=== PATIENT | female | born 1985 | race Caucasian/White ===

== ENCOUNTER 2016-05-24 17:12 | Emergency (ER) | payer OTHER ==
[2016-05-24 17:23] VITALS: BP 159/100
--- NOTE | 2016-05-24 17:29 | PHYS DOC ---
Past Medical History Past Medical History: No Pertinent History Past Surgical History: No Surgical History Adult General Chief Complaint Chief Complaint: TOE PROBLEM HPI HPI Patient is a 31 year old male presents emergency department stating that she has having right second toe pain. She states 2 days ago she was lifting a couch to document anything that when it fell on her toe. She states she has had increased pain and swelling. She's been taken Tylenol and ibuprofen for the pain and discomfort. She states today was first a she was actually able to elevate the foot. Patient also states that she is having right ear pain and discomfort denies any fever, chills or any nausea vomiting. Review of Systems Review of Systems Constitutional: Denies fever or chills [] Eyes: Denies change in visual acuity, redness, or eye pain [] HENT: Denies nasal congestion or sore throat. C/o right ear pain and discomfort Respiratory: Denies cough or shortness of breath [] Cardiovascular: No additional information not addressed in HPI [] GI: Denies abdominal pain, nausea, vomiting, bloody stools or diarrhea [] : Denies dysuria or hematuria [] Musculoskeletal: Denies back pain. C/o right second toe pain Integument: Denies rash or skin lesions [] Neurologic: Denies headache, focal weakness or sensory changes [] Current Medications Current Medications Current Medications Medications (Trade) Dose Ordered Sig/Shruthi Start Time Stop Time Status Last Admin Dose Admin Ibuprofen (Motrin) 800 mg 1X ONCE 05/24/16 17:30 05/24/16 17:31 DC 05/24/16 17:32 800 MG Allergies Allergies Allergies Coded Allergies Type Severity Reaction Last Updated Verified No Known Drug Allergies 05/24/16 No Physical Exam Physical Exam Constitutional: Well developed, well nourished, no acute distress, non-toxic appearance. [] HENT: Normocephalic, atraumatic, bilateral external ears normal, oropharynx moist, no oral exudates, nose normal. Left tympanic membrane appears to be normal, right tympanic membrane appears to be red. Eyes: PERRLA, EOMI, conjunctiva normal, no discharge. [] Neck: Normal range of motion, no tenderness, supple, no stridor. [] Cardiovascular:Heart rate regular rhythm, no murmur [] Lungs & Thorax: Bilateral breath sounds clear to auscultation [] Skin: Warm, dry, no erythema, no rash. [] Back: No tenderness Extremities: Right second toe tenderness, no cyanosis, no clubbing, ROM intact, no edema. Right second toe appears to be swollen as well as black and blue. Patient with sensation noted although decreased. Neurologic: Alert and oriented X 3, normal motor function, normal sensory function, no focal deficits noted. [] Psychologic: Affect normal, judgement normal, mood normal. [] Current Patient Data Vital Signs Vital Signs Date Time Temp Pulse Resp B/P Pulse Ox O2 Delivery O2 Flow Rate FiO2 05/24/16 17:23 98.1 74 18 98 Room Air 98.1 EKG EKG [] Radiology/Procedures Radiology/Procedures [] Course & Med Decision Making Course & Med Decision Making Pertinent Labs and Imaging studies reviewed. (See chart for details) X-rays reveal a tuft fracture to the second right toe. Patient was recommended to wear hard soled shoe in which she states that she would prefer a postop shoe at this time. Patient was encouraged keep the toe clean and dry and apply antibiotic ointment to the base of the nail. Patient will be placed on amoxicillin for a right otitis media. Recommended Tylenol and ibuprofen for fever chills generalized body aches and discomfort as well as pain. Patient was also provided with hydrocodone for severe pain and discomfort for the toe. She was instructed this medication will cause drowsiness do not take any be alert and oriented. Patient agrees with discharge instructions treatment regimens and follow-up recommendations. [] Dragon Disclaimer Dragon Disclaimer This electronic medical record was generated, in whole or in part, using a voice recognition dictation system. Departure Departure Impression: Primary Impression: Fracture of toe, closed Additional Impression: Right otitis media Disposition: 01 HOME, SELF-CARE Condition: STABLE Referrals: MOHINI SHELL MD Patient Instructions: Otitis Media, Adult, [id number], Toe Fracture, Easy-to- Read Additional Instructions: Activity as tolerated. Tylenol and ibuprofen for pain and discomfort. Hydrocodone for severe pain and discomfort this medication will cause drowsiness do not take any be alert and oriented. Ice packs on 20 minutes off 20 minutes several times a day. Elevation as much as possible. Primary care physician in the next 5-7 days. He also follow-up with orthopedic in the next 5-7 days in regards to your toe fracture. Return to the emergency department sign symptoms of become worse. Scripts Hydrocodone/Apap 5-325 ([place] 5-325 Tablet)1 Each Tablet1 Tab PO PRN Q6HRS PRN PAIN #10 TAB Prov:RADHA DELEON NP 05/24/16 Amoxicillin 500 Mg Capsule1 Cap PO BID #20 CAP Prov:RADHA DELEON CERTIFIED PESTICIDE APPLICATOR 05/24/16 Problem Qualifiers RADHA DELEON NP May 24, 2016 17:29
[2016-05-24] MEDS ORDERED: IBUPROFEN 800 MG TABLET. PO ONE (17:30)
[2016-05-24] MEDS ORDERED: AMOX500C PO (18:02)
[2016-05-24] MEDS ORDERED: HYDR-971 PO (18:02)
--- NOTE | 2016-05-25 07:53 | RAD ---
Right second toe, 3 views, 05/24/2016: History: Trauma, injury There is a fracture of the distal phalanx. There is slight lateral displacement of a small terminal tuft fragment. There is an additional small cortical fragment present along the lateral margin of the proximal end of the distal phalanx. The proximal and middle phalanges are unremarkable. IMPRESSION: Acute fracture of the distal phalanx of the second toe.
== END 2016-05-24 18:11 | disposition home or self-care (01) ==
LOC: ER 17:12
DX: S92.531A Displaced fracture of distal phalanx of right lesser toe(s), initial encounter for closed fracture (principal); H66.91 Otitis media, unspecified, right ear; W20.8XXA Other cause of strike by thrown, projected or falling object, initial encounter; Y93.89 Activity, other specified; Y92.89 Other specified places as the place of occurrence of the external cause; Y99.8 Other external cause status
CPT/HCPCS: 73660; 99284

== ENCOUNTER 2016-05-28 12:16 | Emergency (ER) | payer OTHER ==
[~2016-05-28] VITALS: Ht 170.2 cm; Wt 95.3 kg
[~2016-05-28 12:16] MED LIST: AMOX500C PO; HYDR-971 PO
[2016-05-28 12:30] VITALS: BP 155/111
[2016-05-28] MEDS ORDERED: CIPR7.5D AD (13:13)
--- NOTE | 2016-05-28 13:13 | PHYS DOC ---
Past Medical History Past Medical History: No Pertinent History Past Surgical History: No Surgical History Alcohol Use: None Drug Use: None Adult General Chief Complaint Chief Complaint: EARACHE/EAR PAIN [facility] HPI Patient is a 31 year old female presents emergency department stating that she was seen here 4 days ago for a right ear pain and discomfort. She is placed on amoxicillin at that time. She returns back today stating that she has increased fullness in the ear and continues to have pain and discomfort. She has been using Tylenol and ibuprofen for pain and discomfort. She denies any fever, chills she does state she's she is nasally congested. She also states that she has a sore in the inside of the right ear. She denies any drainage or discharge coming from the ear. Review of Systems Review of Systems Constitutional: Denies fever or chills [] Eyes: Denies change in visual acuity, redness, or eye pain [] HENT: Denies nasal congestion or sore throat. C/o right ear pain and discomfort Respiratory: Denies cough or shortness of breath [] Cardiovascular: No additional information not addressed in HPI [] GI: Denies abdominal pain, nausea, vomiting, bloody stools or diarrhea [] : Denies dysuria or hematuria [] Musculoskeletal: Denies back pain or joint pain [] Integument: Denies rash or skin lesions [] Neurologic: Denies headache, focal weakness or sensory changes [] Allergies Allergies Allergies Coded Allergies Type Severity Reaction Last Updated Verified No Known Drug Allergies 05/24/16 No Physical Exam Physical Exam Constitutional: Well developed, well nourished, no acute distress, non-toxic appearance. [] HENT: Normocephalic, atraumatic, bilateral external ears normal, oropharynx moist, no oral exudates, nose normal. Tympanic membrane appears to be normal. Right tympanic membrane remains red and bulging. Canal appears to be red as well. Patient does have a sore on the inside of the right ear. Patient does have some type sinus tenderness on the right. Eyes: PERRLA, EOMI, conjunctiva normal, no discharge. [] Neck: Normal range of motion, no tenderness, supple, no stridor. [] Cardiovascular:Heart rate regular rhythm, no murmur [] Lungs & Thorax: Bilateral breath sounds clear to auscultation [] Skin: Warm, dry, no erythema, no rash. [] Back: No tenderness Extremities: No tenderness, no cyanosis, no clubbing, ROM intact, no edema. [] Neurologic: Alert and oriented X 3, normal motor function, normal sensory function, no focal deficits noted. [] Psychologic: Affect normal, judgement normal, mood normal. [] Current Patient Data Vital Signs Vital Signs Date Time Temp Pulse Resp B/P Pulse Ox O2 Delivery O2 Flow Rate FiO2 05/28/16 12:30 98.3 83 14 100 Room Air 98.3 EKG EKG [] Radiology/Procedures Radiology/Procedures [] Course & Med Decision Making Course & Med Decision Making Pertinent Labs and Imaging studies reviewed. (See chart for details) Patient will continue with the amoxicillin. She'll be provided with some Cipro eardrops. Also encourage patient to use some Afrin nasal spray 1 spray to bilateral naris twice a day for the next 3 days. Encourage plenty of fluids. Tylenol and ibuprofen for pain and discomfort. Patient agrees with discharge instructions treatment regimens and follow-up recommendations. Signs symptoms to return back to emergency department as been provided. [] Dragon Disclaimer Dragon Disclaimer This electronic medical record was generated, in whole or in part, using a voice recognition dictation system. Departure Departure Impression: Primary Impression: Right otitis media Additional Impression: Right otitis externa Disposition: 01 HOME, SELF-CARE Condition: STABLE Referrals: NO PCP (PCP) Patient Instructions: Otitis Externa, [id number], Otitis Media, Adult, Easy- to-Read Additional Instructions: Activity as tolerated. Continue the amoxicillin which were prescribed 4 days ago. Eardrops as prescribed. Tylenol and ibuprofen for fever chills generalized body aches and discomfort. He may use Afrin [id number] 1 spray to bilateral naris twice a day for the next 3 days. Do not use any longer than to 3 days. Follow-up the primary care physician in the next 3-5 days. Return back to emergency department sign symptoms of become worse. Scripts Ciprofloxacin Hcl/Dexameth (Ciprodex Otic Suspension)7.5 Ml Drops.susp4 Drop AD BID [address] in the right ear for thenext 7 days Prov:RADHA DELEON NP 05/28/16 Problem Qualifiers RADHA DELEON NP May 28, 2016 13:13
== END 2016-05-28 13:19 | disposition home or self-care (01) ==
LOC: ER 12:16
DX: H66.91 Otitis media, unspecified, right ear (principal); H60.91 Unspecified otitis externa, right ear
CPT/HCPCS: 99283

== ENCOUNTER 2016-06-22 10:06 | Emergency (ER) | payer OTHER ==
[~2016-06-22] VITALS: Ht 170.2 cm; Wt 88.0 kg
[~2016-06-22 10:06] MED LIST changes: +CIPR7.5D AD
[2016-06-22 10:22] VITALS: BP 163/121
== END 2016-06-22 11:16 | disposition left against medical advice (07) ==
LOC: ER 10:06
DX: M25.512 Pain in left shoulder (principal); F41.9 Anxiety disorder, unspecified; Z53.21 Procedure and treatment not carried out due to patient leaving prior to being seen by health care provider
CPT/HCPCS: 81025

== ENCOUNTER 2017-04-23 13:39 | Emergency (ER) | payer OTHER ==
[2017-04-23 14:48] LABS: BILIRUBIN,URINE NEGATIVE (NEG); CLARITY,URINE CLEAR; COLOR,URINE YELLOW; GLUCOSE,URINE NEGATIVE (NEG); NITRITE,URINE NEGATIVE (NEG); PH,URINE 7.5; PROTEIN,URINE 30 mg/dL (NEG-TRACE)
[2017-04-23 15:04] LABS: BACTERIA,URINE FEW /HPF (0-FEW); RBC,URINE 20-40 /HPF (0-2); SQUAMOUS EPITHELIAL CELL,UR MOD /LPF
[2017-04-23 15:11] LABS: NEG OBC UR NEG; POS OBC UR POS; U PREG PATIENT POSITIVE (NEG)
[2017-04-23] MEDS: oxyCODONE/APAP 5/325 1 TAB TABLET PO (15:11)
[2017-04-23 16:08] LABS: ADD MAN DIFF? NO
[2017-04-23 16:11] LABS: BASO # 0.1 x10^3/uL (0.0-0.2); BASO % 1 % (0-3); EOS # 0.1 x10^3/uL (0.0-0.7); EOS % 1 % (0-3); HEMATOCRIT 42.7 % (36.0-47.0); HEMOGLOBIN 14.1 g/dL (12.0-15.5); LYMPH # 3.3 x10^3/uL (1.0-4.8); LYMPH % 30 % (24-48); MEAN CORPUSCULAR HEMOGLOBIN 28 pg (25-35); MEAN CORPUSCULAR HGB CONC 33 g/dL (31-37); MEAN CORPUSCULAR VOLUME 84 fL (79-100); MONO # 0.7 x10^3/uL (0.0-1.1); MONO % 6 % (0-9); NEUT # 6.7 x10^3uL (1.8-7.7); NEUT % 61 % (31-73); PLATELET COUNT 230 x10^3/uL (140-400); RED BLOOD COUNT 5.12 x10^6/uL (3.50-5.40); RED CELL DISTRIBUTION WIDTH 15.8 % (11.5-14.5)
[2017-04-24 15:31] LABS: CHLAMYDIA PROBE Negative (Negative); GC PROBE Negative (Negative)
== END 2017-04-23 18:27 | disposition home or self-care (01) ==
LOC: ER 13:39
DX: O20.0 Threatened abortion (principal); Z97.5 Presence of (intrauterine) contraceptive device; J45.909 Unspecified asthma, uncomplicated; Z90.721 Acquired absence of ovaries, unilateral; F12.10 Cannabis abuse, uncomplicated
CPT/HCPCS: 36415; 76801; 76817; 81001; 81025; 84702; 85025; 86901; 87086; 87491; 87591; 99285-25; Q0111

== ENCOUNTER 2018-06-07 13:21 | Emergency (ER) | payer OTHER ==
[~2018-06-07] VITALS: Ht 170.2 cm; Wt 95.3 kg
[~2018-06-07 13:21] MED LIST changes: +HYDR-3164 PO; -HYDR-971 PO; +OXYC1TAB15 PO
[2018-06-07 14:39] VITALS: BP 184/88
[2018-06-07] MEDS ORDERED: CYCL10TA2 PO (15:50)
[2018-06-07] MEDS ORDERED: NAPR-514 PO (15:50)
--- NOTE | 2018-06-07 15:50 | PHYS DOC ---
Past Medical History Past Medical History: Anxiety, Asthma, Depression, Other Additional Past Medical Histor: ADD Past Surgical History: Tonsillectomy, Other Additional Past Surgical Histo: right ovary; left wrist Alcohol Use: Occasionally Drug Use: Marijuana Adult General Chief Complaint Chief Complaint: EARACHE/EAR PAIN [facility] HPI Patient is a 33 year old male who presents to the emergency Department today with complaints of left ear pain for the last 2 days. Patient denies any fever, cough, runny nose, sore throat, shortness of breath, nausea, vomiting, or diarrhea. She denies any discharge or bleeding from her ear. She denies any known injury. Patient states she has had some nasal congestion recently. Currently she states that her ear feels better after hot about a hour ago. Patient also complains of left low back pain that radiates into her left hip since yesterday. Patient states that this symptom happens on occasion she denies any known injury, she also denies any numbness, tingling, or weakness of the lower left extremity. Currently she rates the pain 8 out of 10 on the pain scale. She states that the pain is alleviated with stretching and medications, it is aggravated by weightbearing and movement. Review of Systems Review of Systems Constitutional: Denies fever or chills [] Eyes: Denies change in visual acuity, redness, or eye pain [] HENT: Denies sore throat; see history of present illness Respiratory: Denies cough or shortness of breath [] Cardiovascular: No additional information not addressed in HPI [] GI: Denies abdominal pain, nausea, vomiting, or diarrhea [] Musculoskeletal: See history of present illness Integument: Denies rash or skin lesions [] Neurologic: Denies headache, focal weakness or sensory changes [] Allergies Allergies Allergies Coded Allergies Type Severity Reaction Last Updated Verified No Known Drug Allergies 05/24/16 No Physical Exam Physical Exam Constitutional: Well developed, well nourished, no acute distress, non-toxic appearance. [] HENT: Normocephalic, atraumatic, bilateral external ears normal, bilateral TMs normal, cobblestone appearance of posterior pharynx, oropharynx moist, no oral exudates, nose congested Eyes: conjunctiva normal, no discharge. [] Neck: Normal range of motion, no tenderness, supple, no stridor. [] Cardiovascular:Heart rate regular rhythm, no murmur [] Lungs & Thorax: Bilateral breath sounds clear to auscultation [] Skin: Warm, dry, no erythema, no rash. [] Back: No bony tenderness, left lumbar paraspinal TTP with radiation to her left hip, left straight leg lift positive for increased pain Extremities: No cyanosis, ROM intact, no edema. [] Neurologic: Alert and oriented X 3, normal motor function, normal sensory function, no focal deficits noted. [] Psychologic: Affect normal, judgement normal, mood normal. [] Current Patient Data Vital Signs Vital Signs Date Time Temp Pulse Resp B/P (MAP) Pulse Ox O2 Delivery O2 Flow Rate FiO2 06/07/18 14:39 98.3 89 18 184/88 (120) 100 Room Air 98.3 EKG EKG [] Radiology/Procedures Radiology/Procedures [] Course & Med Decision Making Course & Med Decision Making Pertinent Labs and Imaging studies reviewed. (See chart for details) dx: Eustachian tube dysfunction, left low back pain with sciatica of left leg Encouraged patient to purchase some Flonase nasal spray use 2 sprays each naris once daily in the morning. Also recommend the use of cool mist humidifier in the room with patient. Prescriptions written for Flexeril and naproxen. Patient encouraged to stretch frequently to help relieve sciatica symptoms. Follow-up with primary care doctor symptoms persist, return to ER symptoms worsen.Patient verbalized an understanding of home care, medications, follow-up, and return to ED instructions and was in agreement with the plan of care. [] Dragon Disclaimer Dragon Disclaimer This electronic medical record was generated, in whole or in part, using a voice recognition dictation system. Departure Departure Impression: Primary Impression: Left-sided low back pain with sciatica Additional Impressions: Acute dysfunction of left eustachian tube Otalgia, left ear Disposition: 01 HOME, SELF-CARE Condition: STABLE Referrals: JESSIKA JESUS (PCP) Patient Instructions: Otalgia-Brief, Sciatica, [id number] Additional Instructions: Fill prescription(s) and use as directed for relief of sciatica. Recommend frequent stretching and activity as tolerated. Purchase [id number] Flonase nasal spray use 2 sprays each nare once a day. Also recommend the use of a Cool mist humidifier in room at bedtime. Tylenol or ibuprofen prn pain/fever. Increase clear fluids. Avoid triggers such as smoke, fragrance, dust, and pollen. Follow-up with your primary care doctor as needed. Return to the ER symptoms worsen. Scripts Cyclobenzaprine Hcl (CYCLOBENZAPRINE HCL) 10 Mg Tablet 1 TAB PO TID PRN for PAIN for 10 Days, #30 TAB 0 Refills Prov: ZAC MENDOZA APRN 06/07/18 Naproxen (NAPROXEN) 500 Mg Tablet 500 MG PO BID PRN for PAIN for 10 Days, #20 TAB 0 Refills Prov: ZAC MENDOZA APRN 06/07/18 Problem Qualifiers Primary Impression: Left-sided low back pain with sciatica Chronicity: acute Sciatica laterality: sciatica of left side Qualified Codes: M54.42 - Lumbago with sciatica, left side ZAC MENDOZA APRN Jun 07, 2018 15:50
[2018-06-07] MEDS ORDERED: KETOROLAC 60 MG/2 ML VIAL. IM ONE (16:00)
== END 2018-06-07 16:10 | disposition home or self-care (01) ==
LOC: ER 13:21
DX: H69.82 Other specified disorders of Eustachian tube, left ear (principal); M54.42 Lumbago with sciatica, left side; F41.9 Anxiety disorder, unspecified; J45.909 Unspecified asthma, uncomplicated; F32.9 Major depressive disorder, single episode, unspecified; Z90.89 Acquired absence of other organs
CPT/HCPCS: 96372; 99283; J1885

== ENCOUNTER 2020-01-24 13:46 | Emergency (ER) | payer MEDICAID, OTHER ==
[~2020-01-24] VITALS: Ht 170.2 cm; Wt 91.0 kg
[~2020-01-24 13:46] MED LIST changes: +CYCL10TA2 PO; +NAPR-514 PO
--- NOTE | 2020-01-24 15:00 | RAD ---
Single AP view of the chest. Comparison: None. Indication: Mental status Findings: The heart is at the upper limits of normal. There is no pneumothorax or effusion. No air space or interstitial disease. Impression: 1. No acute cardiopulmonary process. Electronically signed by: Barry Smith MD (01/24/2020 2:57 PM) [id number]
[2020-01-24 15:24] LABS: BASO % 0 % (0-3); EOS % 0 % (0-3); HEMATOCRIT 37.1 % (36.0-47.0); HEMOGLOBIN 12.1 g/dL (12.0-15.5); LYMPH # 1.9 x10^3/uL (1.0-4.8); LYMPH % 14 % (24-48); MEAN CORPUSCULAR HEMOGLOBIN 27 pg (25-35); MEAN CORPUSCULAR HGB CONC 33 g/dL (31-37); MEAN CORPUSCULAR VOLUME 82 fL (79-100); MONO # 0.7 x10^3/uL (0.0-1.1); MONO % 5 % (0-9); NEUT # 10.6 x10^3/uL (1.8-7.7); NEUT % 80 % (31-73); PLATELET COUNT 222 x10^3/uL (140-400); RED BLOOD COUNT 4.51 x10^6/uL (3.50-5.40); RED CELL DISTRIBUTION WIDTH 15.7 % (11.5-14.5); WHITE BLOOD COUNT 13.2 x10^3/uL (4.0-11.0)
[2020-01-24 15:39] LABS: PROTHROMBIN TIME PATIENT 13.2 SEC (11.7-14.0)
[2020-01-24 15:47] LABS: CALCIUM 9.2 mg/dL (8.5-10.1); CREATININE 0.8 mg/dL (0.6-1.0); GFR 82.1; POTASSIUM 3.3 mmol/L (3.5-5.1)
[2020-01-24 15:52] LABS: ALBUMIN 4.2 g/dL (3.4-5.0); ALBUMIN/GLOBULIN RATIO 1.3 (1.0-1.7); MAGNESIUM 2.4 mg/dL (1.8-2.4); TOTAL BILIRUBIN 0.4 mg/dL (0.2-1.0); TOTAL PROTEIN 7.5 g/dL (6.4-8.2)
[2020-01-24 15:56] LABS: ACETAMIN < 2 mcg/ml (10-30); SALIC < 2.8 mg/dL (2.8-20.0)
[2020-01-24 16:30] LABS: BILIRUBIN,URINE NEGATIVE (NEG); CLARITY,URINE CLEAR; COLOR,URINE YELLOW; NITRITE,URINE NEGATIVE (NEG); PH,URINE 5.5 (<5.0-8.0); PROTEIN,URINE 30 mg/dL (NEG-TRACE); UROBILINOGEN,URINE 0.2 mg/dL (0.2 mg/dL)
[2020-01-24 16:37] LABS: BARBITURATES NEG (NEG); BENZODIAZEPINES POS (NEG); CANNABINOIDS POS (NEG); COCAINE NEG (NEG); METHADONE NEG (NEG); OPIATES NEG (NEG); PHENCYCLIDINE NEG (NEG)
[2020-01-24 16:44] LABS: BACTERIA,URINE 0 /HPF (0-FEW); RBC,URINE TNTC /HPF (0-2)
--- NOTE | 2020-01-24 16:46 | RAD ---
Exam: CT head INDICATION: Altered mental status TECHNIQUE: Sequential axial images through the head were obtained without the administration of IV contrast. Comparisons: None FINDINGS: No focal parenchymal lesion or hemorrhage is identified. There is no midline shift or sulcal effacement. No acute vascular territory infarction is identified. Urban-white distinction is preserved. The ventricular system is within normal limits without compression hydrocephalus. The basal cisterns are well maintained. The visualized portions of the paranasal sinuses and mastoid air cells are well-pneumatized. No acute fractures. IMPRESSION: No acute intracranial abnormality. Exposure: One or more of the following in the visualized dose reduction techniques were utilized for this examination: 1. Automated exposure control 2. Adjustment of the MA and/or KV according to patient size Use of iterative of reconstructive technique Electronically signed by: Chun Yee MD (01/24/2020 4:43 PM) [facility]
[2020-01-24 16:51] LABS: AMPHETAMINE/METHAMPHETAMINE POS (NEG)
--- NOTE | 2020-01-24 17:28 | PHYS DOC ---
Past Medical History Past Medical History: Anxiety, Asthma, Depression, Hypertension, Other Additional Past Medical Histor: ADD Past Surgical History: Tonsillectomy, Other Additional Past Surgical Histo: right ovary; left wrist Smoking Status: Current Every Day Smoker Alcohol Use: Occasionally Drug Use: Marijuana General Adult EDM: Chief Complaint: NEAR SYNCOPE HPI: HPI: Patient is a 34 year old female with history of asthma, depression, anxiety, hy pertension who presents to the ED today with rate to be evaluated for near syncope episode. Patient states she had smoked marijuana a couple minutes ago, she had a sexual intercourse with an ex-boyfriend, after sex the boyfriend reported to her that she " had an episode", patient does not know what the episode was but apparently she was walking to the living room and they noted she was not acting right. They called EMS on her. Patient is in the ED alert oriented x4, she is tearful stating she thinks she could have had a stroke, she states mother had stroke after having spinal fusion years ago and she is afraid she could have a stroke Review of Systems: Review of Systems: Constitutional: Denies fever or chills. [] Eyes: Denies change in visual acuity. [] HENT: Denies nasal congestion or sore throat. [] Respiratory: Denies cough or shortness of breath. [] Cardiovascular: Denies chest pain or edema. [] GI: Denies abdominal pain, nausea, vomiting, bloody stools or diarrhea. [] : Denies dysuria. [] Musculoskeletal: Denies back pain or joint pain. [] Integument: Denies rash. [] Neurologic: reports AMS. Denies headache, focal weakness or sensory changes. [] Psychiatric: Denies depression or anxiety. [] Heart Score: Risk Factors: Risk Factors: DM, Current or recent (<one month) smoker, HTN, HLP, family history of CAD, obesity. Risk Scores: Score 0 - 3: 2.5% MACE over next 6 weeks - Discharge Home Score 4 - 6: 20.3% MACE over next 6 weeks - Admit for Clinical Observation Score 7 - 10: 72.7% MACE over next 6 weeks - Early Invasive Strategies Allergies: Allergies: Allergies Coded Allergies Type Severity Reaction Last Updated Verified No Known Drug Allergies 05/24/16 No Physical Exam: PE: Constitutional: Well developed, well nourished, no acute distress, non-toxic appearance. [] HENT: Normocephalic, atraumatic, bilateral external ears normal, oropharynx moist, no oral exudates, nose normal. [] Eyes: PERRLA, EOMI, conjunctiva normal, no discharge. [] Neck: Normal range of motion, no tenderness, supple, no stridor. [] Cardiovascular:Heart rate regular rhythm, no murmur [] Lungs & Thorax: Bilateral breath sounds clear to auscultation [] Abdomen: Bowel sounds normal, soft, no tenderness, no masses, no pulsatile masses. [] Skin: Warm, dry, no erythema, no rash. [] Back: No tenderness, no CVA tenderness. [] Extremities: No tenderness, no cyanosis, no clubbing, ROM intact, no edema. [] Neurologic: Alert and oriented X 3, normal motor function, normal sensory function, no focal deficits noted. [] Psychologic: tearful[] Current Patient Data: Labs: Laboratory Tests Test 01/24/20 14:57 01/24/20 15:15 01/24/20 16:27 White Blood Count 13.2 x10^3/uL (4.0-11.0) H Red Blood Count 4.51 x10^6/uL (3.50-5.40) Hemoglobin 12.1 g/dL (12.0-15.5) Hematocrit 37.1 % (36.0-47.0) Mean Corpuscular Volume 82 fL (79-100) Mean Corpuscular Hemoglobin 27 pg (25-35) Mean Corpuscular Hemoglobin Concent 33 g/dL (31-37) Red Cell Distribution Width 15.7 % (11.5-14.5) H Platelet Count 222 x10^3/uL (140-400) Neutrophils (%) (Auto) 80 % (31-73) H Lymphocytes (%) (Auto) 14 % (24-48) L Monocytes (%) (Auto) 5 % (0-9) Eosinophils (%) (Auto) 0 % (0-3) Basophils (%) (Auto) 0 % (0-3) Neutrophils # (Auto) 10.6 x10^3/uL (1.8-7.7) H Lymphocytes # (Auto) 1.9 x10^3/uL (1.0-4.8) Monocytes # (Auto) 0.7 x10^3/uL (0.0-1.1) Eosinophils # (Auto) 0.0 x10^3/uL (0.0-0.7) Basophils # (Auto) 0.0 x10^3/uL (0.0-0.2) Prothrombin Time 13.2 SEC (11.7-14.0) Prothrombin Time INR 1.0 (0.8-1.1) Sodium Level 141 mmol/L (136-145) Potassium Level 3.3 mmol/L (3.5-5.1) L Chloride Level 105 mmol/L (98-107) Carbon Dioxide Level 24 mmol/L (21-32) Anion Gap 12 (6-14) Blood Urea Nitrogen 17 mg/dL (7-20) Creatinine 0.8 mg/dL (0.6-1.0) Estimated GFR (Cockcroft-Gault) 82.1 BUN/Creatinine Ratio 21 (6-20) H Glucose Level 88 mg/dL (70-99) Calcium Level 9.2 mg/dL (8.5-10.1) Magnesium Level 2.4 mg/dL (1.8-2.4) Total Bilirubin 0.4 mg/dL (0.2-1.0) Aspartate Amino Transferase (AST) 26 U/L (15-37) Alanine Aminotransferase (ALT) 23 U/L (14-59) Alkaline Phosphatase 59 U/L (46-116) Troponin I Quantitative < 0.017 ng/mL (0.000-0.055) VG-Rzv-[id number]-Type Natriuretic Peptide 46 pg/mL (0-124) Total Protein 7.5 g/dL (6.4-8.2) Albumin 4.2 g/dL (3.4-5.0) Albumin/Globulin Ratio 1.3 (1.0-1.7) Lipase 105 U/L (73-393) Thyroid Stimulating Hormone (TSH) 1.666 uIU/mL (0.358-3.74) Salicylates Level < 2.8 mg/dL (2.8-20.0) L Salicylate Last Dose Date Unk Salicylate Last Dose Time Unk Acetaminophen Level < 2 mcg/ml (10-30) L Acetaminophen Last Dose Date Unk Acetaminophen Last Dose Time Unk Ethyl Alcohol Level < 10 mg/dL (0-10) Urine Collection Type Unknown Urine Color Yellow Urine Clarity Clear Urine pH 5.5 (<5.0-8.0) Urine Specific [place] 1.025 (1.000-1.030) Urine Protein 30 mg/dL (NEG-TRACE) Urine Glucose (UA) Negative mg/dL (NEG) Urine Ketones (Stick) Trace mg/dL (NEG) Urine Blood Large (NEG) Urine Nitrite Negative (NEG) Urine Bilirubin Negative (NEG) Urine Urobilinogen Dipstick 0.2 mg/dL (0.2 mg/dL) Urine Leukocyte Esterase Trace (NEG) Urine RBC Tntc /HPF (0-2) Urine WBC 1-4 /HPF (0-4) Urine Squamous Epithelial Cells Mod /LPF Urine Bacteria 0 /HPF (0-FEW) Urine Mucus Mod /LPF Urine Opiates Screen Neg (NEG) Urine Methadone Screen Neg (NEG) Urine Barbiturates Neg (NEG) Urine Phencyclidine Screen Neg (NEG) Urine Amphetamine/Methamphetamine Pos (NEG) Urine Benzodiazepines Screen Pos (NEG) Urine Cocaine Screen Neg (NEG) Urine Cannabinoids Screen Pos (NEG) Urine Ethyl Alcohol Neg (NEG) POC Urine HCG, Qualitative Hcg negative (Negative) Laboratory Tests 01/24/20 14:57 Laboratory Tests 01/24/20 14:57 Vital Signs: Vital Signs Date Time Temp Pulse Resp B/P (MAP) Pulse Ox O2 Delivery O2 Flow Rate FiO2 01/24/20 14:01 97.7 82 16 183/108 (133) 100 Room Air 97.7 EKG: EKG: [] Radiology/Procedures: Radiology/Procedures: []PROCEDURE: PORTABLE CHEST 1V Single AP view of the chest. Comparison: None. Indication: Mental status Findings: The heart is at the upper limits of normal. There is no pneumothorax or effusion. No air space or interstitial disease. Impression: 1. No acute cardiopulmonary process. Electronically signed by: Barry Smith MD (01/24/2020 2:57 PM) [id number] DICTATED and SIGNED BY: BARRY SMITH MD DATE: 01/24/20 1457 PROCEDURE: CT HEAD WO CONTRAST Exam: CT head INDICATION: Altered mental status TECHNIQUE: Sequential axial images through the head were obtained without the administration of IV contrast. Comparisons: None FINDINGS: No focal parenchymal lesion or hemorrhage is identified. There is no midline shift or sulcal effacement. No acute vascular territory infarction is identified. Urban-white distinction is preserved. The ventricular system is within normal limits without compression hydrocephalus. The basal cisterns are well maintained. The visualized portions of the paranasal sinuses and mastoid air cells are well-pneumatized. No acute fractures. IMPRESSION: No acute intracranial abnormality. Exposure: One or more of the following in the visualized dose reduction techniques were utilized for this examination: 1. Automated exposure control 2. Adjustment of the MA and/or KV according to patient size Use of iterative of reconstructive technique Electronically signed by: Chnu Garber MD (01/24/2020 4:43 PM) [facility] DICTATED and SIGNED BY: CHUN GARBER MD DATE: 01/24/201642 Course & Med Decision Making: Course & Med Decision Making Pertinent Labs and Imaging studies reviewed. (See chart for details) This is a 34-year-old female patient who presents to the ED today with bizarre complaint, patient apparently smoked marijuana, had intercourse with her ex-boyfriend and after that was noted not to be acting normal. She arrives in the ED very tearful stating she thinks she had a stroke. CT of the head is negative. CBC CMP lipase with nothing really acute. Urine drug screen was positive for benzodiazepines, marijuana and methamphetamine. She admits to using Xanax and marijuana. She reported in the ED we cannot talk to the current boyfriend who was coming to see her. We discharged her before the boyfriend arrived. Hung Disclaimer: Hung Disclaimer: This electronic medical record was generated, in whole or in part, using a voice recognition dictation system. Departure Departure Impression: Primary Impression: AMS (altered mental status) Qualified Codes: R41.82 - Altered mental status, unspecified Additional Impression: Drug abuse Disposition: 01 DC HOME SELF CARE/HOMELESS Condition: STABLE Referrals: CECILE HEARN DO (PCP) follow up in 1-2 weeks Patient Instructions: Altered Mental Status, Drug Abuse, FAQs Additional Instructions: You were evaluated in the emergency room, your CAT scan of the head was negative for any acute findings, chest x-ray was negative, your labs were negative for any acute findings, you were positive for benzodiazepines, marijuana and methamphetamine. Consider getting help for drug use. [facility] is available to help patients with mental illness as well as drug use DARRION BROWN APRN Jan 24, 2020 17:28
[2020-01-24 17:36] VITALS: BP 141/78
--- NOTE | 2020-01-24 17:38 | EKG ---
[facility] [address] [place] [address] Test Date: 2020-01-24 Test Time: 14:34:39 Pat Name: CA STEARNS Department: Room: Gender: F Learning Support Resource Room Teacher: : 1985 Requested By: DARRION BROWN Order Number: [id number] Reading MD: Measurements Intervals [place] Rate: 53 P: 31 DE: 162 QRS: 8 QRSD: 96 T: 28 QT: 424 QTc: 400 Interpretive Statements SINUS RHYTHM NORMAL ECG RI6.02 No previous ECG available for comparison
== END 2020-01-24 17:56 | disposition home or self-care (01) ==
LOC: ER 13:46
DX: R41.82 Altered mental status, unspecified (principal); F12.10 Cannabis abuse, uncomplicated; R55 Syncope and collapse; F32.9 Major depressive disorder, single episode, unspecified; J45.909 Unspecified asthma, uncomplicated; F41.9 Anxiety disorder, unspecified; I10 Essential (primary) hypertension; F17.200 Nicotine dependence, unspecified, uncomplicated; Z90.89 Acquired absence of other organs; Z98.890 Other specified postprocedural states
CPT/HCPCS: 36415; 70450; 71045; 80053; 80307; 80329; 81001; 81025; 83690; 83735; 83880; 84443; 84484; 85025; 85610; 87086; 93005; 99285; G0480